=== PATIENT | male | born 1980 | race Caucasian/White ===

== ENCOUNTER 2017-03-23 09:40 | Inpatient (IN) | payer BC, OTHER ==
[~2017-03-23] VITALS: Ht 182.9 cm; Wt 77.1 kg
[2017-03-23] MEDS ORDERED: CLONIDINE HCL 0.1 MG TABLET PO PRN (19:30)
[2017-03-23] MEDS ORDERED: MAGNESIUM HYDROXIDE 30 ML LIQUID UDC PO PRN (19:30)
[2017-03-23] MEDS ORDERED: MIRALAX 17 GM POWD.PACK PO PRN (19:30)
[2017-03-23] MEDS ORDERED: LOPERAMIDE HCL 2 MG CAPSULE PO PRN ×2 (19:30)
[2017-03-23] MEDS ORDERED: MAG HYDROX/AL HYDROX/SIMETH 30 ML LIQUID UDC PO PRN (19:30)
[2017-03-23] MEDS ORDERED: DOCUSATE SODIUM 250 MG CAPSULE PO PRN (19:30)
[2017-03-23] MEDS ORDERED: DICYCLOMINE HCL 20 MG TABLET PO PRN (19:30)
[2017-03-23] MEDS ORDERED: IBUPROFEN 600 MG TABLET PO PRN (19:30)
[2017-03-23] MEDS ORDERED: LORAZEPAM 1 MG TABLET PO PRN (19:30)
[2017-03-23] MEDS ORDERED: ONDANSETRON 4 MG/2 ML VIAL IM PRN (19:30)
[2017-03-23] MEDS ORDERED: BUPRENORPHINE HCL 2 MG TAB.SUBL SL PRN (19:30)
[2017-03-23] MEDS ORDERED: ONDANSETRON ODT 4 MG TAB.RAPDIS SL PRN (19:30)
[2017-03-23] MEDS ORDERED: ACETAMINOPHEN 325 MG TABLET PO PRN (19:30)
--- NOTE | 2017-03-23 19:30 | NUR ---
Pre admission note Pt seen in intake office. Pt appears mildly intoxicated but in stable condition. V/S WNL. No s/s of distress noted at this time. Respirations even and unlabored. Policies on medication disposal explained to and understood by patient. Will continue to monitor. Will admit to unit.
[2017-03-23 19:59] LABS: BASOPHILS # (AUTO) 0.1 K/uL (0.0-8.0); EOSINOPHILS # (AUTO) 0.1 K/uL (0.0-0.7); EOSINOPHILS % (AUTO) 1.3 % (0.0-7.0); HEMATOCRIT 47.3 % (36.7-47.1); LYMPHOCYTES # (AUTO) 1.7 K/uL (20.0-40.0); LYMPHOCYTES % (AUTO) 29.6 % (20.5-51.5); MEAN CORPUSCULAR HEMOGLOBIN 31.9 uug (23.8-33.4); MEAN CORPUSCULAR HGB CONC 34 g/dL (32.5-36.3); MEAN CORPUSCULAR VOLUME 94.5 fL (73.0-96.2); MONOCYTES # (AUTO) 0.7 K/uL (2.0-10.0); MONOCYTES % (AUTO) 12.4 % (0.0-11.0); NEUTROPHILS # (AUTO) 3.2 K/uL (1.8-8.9); NEUTROPHILS % (AUTO) 55.7 % (38.5-71.5); PLATELET COUNT (AUTO) 226 K/uL (152-348); RED BLOOD CELL COUNT(AUTO) 5.01 MIL/uL (4.06-5.63); WHITE BLOOD COUNT (AUTO) 5.8 K/uL (3.6-10.2)
--- NOTE | 2017-03-23 20:00 | NUR ---
Admission note Pt is a 36 yo male, A+Ox4, presenting to [facility] for Opiate/Meth dependence. Pt has Allergies to PCN, is on Full code status, and on Regular diet. Pt is 6'0" in height and 170 LBS in weight. Pt has medical HX of Appendectomy 2 years ago. Pt has family HX as follows: Mother- DM, alcohol abuse, Father- Substance/Alcohol abuse, and Brother: Substance/Alcohol abuse. Pt has no primary care provider. Pt has been using Heroin IV for 7 years (6 months currently), has reached a level of 1gm/daily, and last dose was "$40 worth" on 03-23-17 @1000. Pt has been using Methamphetamine IV for 1 month (7 days total), has reached a level of "$10 worth" on each of the 7 days, and last dose was "$10 worth" on 03-16-17. Pt is not taking any home medications. Pt has HX of previous Detox/Rehab @ [facility] in [place] for 6 months in 09/2014. Pt continued sobriety for a total of 2 years until relapsing in 09/2016. This was the patients last time sober. Pt has been a cigarette smoker for 19 years and has reached a level of 20/daily. Pt appears mildly intoxicated upon admission but in stable condition. No s/s of distress noted at this time. V/S WNL. Respirations even and unlabored. Will continue to monitor.
[2017-03-23 20:03] LABS: *AMPHETAMINE, URINE NEGATIVE (NEGATIVE); *BARBITURATE, URINE NEGATIVE (NEGATIVE); *CANNABINOID, URINE NEGATIVE (NEGATIVE); *COCCAINE, URINE NEGATIVE (NEGATIVE); *OPIATE, URINE POSITIVE (NEGATIVE); *PHENCYCLIDINE SCREEN,URINE NEGATIVE (NEGATIVE)
[2017-03-23 20:06] LABS: ETHANOL < 3 MG/DL (0-0)
[2017-03-23 20:10] LABS: ALANINE AMINOTRANSFERASE 23 U/L (16-63); ALKALINE PHOSPHATASE 66 U/L (50-136); ASPARTATE AMINOTRANSFERASE 25 U/L (15-37); BILIRUBIN,TOTAL 0.4 mg/dL (0.2-1.0); CARBON DIOXIDE 33 mmol/L (21-32); CHLORIDE 101 mmol/L (98-107); GLUCOSE 84 mg/dL (74-106); MAGNESIUM 2.1 mg/dL (1.8-2.4); POTASSIUM 3.8 mmol/L (3.5-5.1); TOTAL PROTEIN, SERUM 7.5 g/dL (6.4-8.2); UREA NITROGEN, BLOOD 8 mg/dL (7-18)
[2017-03-23 20:11] VITALS: BP 125/74
[2017-03-23] MEDS ORDERED: LORAZEPAM 1 MG TABLET PO ONE (21:00)
[2017-03-24 00:18] VITALS: BP 128/78
[2017-03-24 04:52] VITALS: BP 124/73
--- NOTE | 2017-03-24 06:54 | NUR ---
End of shift note Pt is a 36 yo male, A+Ox4, presenting to [facility] for Opiate/Meth dependence. Pt has Allergies to PCN, is on Full code status, and on Regular diet. Pt has HX of Appendectomy, Anxiety, and Depression. Pt is on 5 day Subutex taper to start today. Pt slept for a total of 10 HRS. Last COWS: 2 @0400. No s/s of distress noted at this time. Respirations even and unlabored. Will endorse to day shift nurse.
--- NOTE | 2017-03-24 07:11 | NUR ---
Start of Shift Notes: Received patient in his room. Alert and verbally responsive. Oriented x 4. Able to make his needs known. Patient verbalizes "I feel alright." Resprations even and unlabored. No SOB noted. Skin warm and dry to touch. Abdomen soft and non-distended. BS (+) in all 4 quadrants. No complains of N/V/D or constipation noted. Bladder soft and non-distended. Voids independently. Ambulatory ad nba with steady gait. Patient is a 36 year old male admitted for opiate and methamphetamine dependence who was placed on a 5-day Subutex taper as ordered that will be starting today. Has past medical hx of appendectomy, anxiety and depression. Allergic to PCN. FULL CODE. Regular diet. On fall and seizure precautions. Encouraged oral fluid intake and encouraged group participation to learn new skills to prevent relapse. Will continue to monitor closely.
[2017-03-24 08:00] VITALS: BP 98/56
[2017-03-24] MEDS ORDERED: TUBERCULIN,PURIF.PROT.DERIV. 5 TU/0.1 ML TEST ID ONE (09:00)
[2017-03-24] MEDS: METHOCARBAMOL 750 MG TABLET PO PRN (09:14)
--- NOTE | 2017-03-24 09:14 | NUR ---
Robaxin/Bentyl given: Patient noted with complain of myalgia 5/10 and abdominal cramps. COWS 4. Medicated patient with Robaxin 750 mg PO and Bentyl as ordered. Will monitor for effectiveness.
[2017-03-24] MEDS: NEOMY/BACITRAC/POLYMI OINT 28.35 GM TUBE TOP SCH ×2 (09:15→17:03)
[2017-03-24] MEDS: BUPRENORPHINE HCL 2 MG TAB.SUBL SL SCH ×4 (09:59→20:41)
--- NOTE | 2017-03-24 09:59 | NUR ---
Subutex 4 mg SL at 0900 not administered: Patient's COWS 4. Subutex 4 mg SL not given. Patient currently does not meet parameter for Subutex administration. Patient also states "I'm not ready yet."
--- NOTE | 2017-03-24 10:14 | NUR ---
Re-assessment: Per patient, PRN Robaxin and Bentyl were mildly effective in reducing myalgia and abdominal cramps. PL 2.
[2017-03-24 12:00] VITALS: BP 99/60
--- NOTE | 2017-03-24 13:57 | NUR ---
Subutex 4 mg SL given/Ativan 2 mg PO given: BP 99/60. COWS 20, patient noted with restless, sweating cold sweats, gross tremors, appears to be in pain, stomach cramps noted with episodes of diarrhea. Patient noted severely anxious and agitated. Medicated patient with Subutex 4 mg SL PRN and Ativan 2 mg PO PRN at this time.
--- NOTE | 2017-03-24 14:05 | NUR ---
MD Communication: COWS score Dr. Diane informed of patient's sudden change in condition and COWS score. Per MD, he will enter in orders.
[2017-03-24] MEDS ORDERED: KETOROLAC TROMETHAMINE 30 MG INJ IM PRN (14:15)
[2017-03-24] MEDS ORDERED: KETOROLAC TROMETHAMINE 30 MG INJ IM ONE (14:15)
[2017-03-24] MEDS ORDERED: CLONIDINE HCL 0.1 MG TABLET PO ONE (14:15)
--- NOTE | 2017-03-24 14:23 | NUR ---
Toradol 30 mg IM/Clonidine 0.1mg PO given: Dr. Diane ordered for patient to receive OT Toradol 30 mg IM and Clonidine 0.1mg PO due to increased s/s of opiate withdrawal m/b chills, hot flashes, and myalgia. PL 9/. Medicated patient with Toradol 30 mg IM and Clonidine 0.1mg PO as ordered. Will monitor for effectiveness.
--- NOTE | 2017-03-24 14:27 | NUR ---
Re-assessment: Subutex 4mg SL COWS 16, less chills ,hot flashes noted. Less anxiety. Continues to be restless and unable to sit still.
[2017-03-24] MEDS ORDERED: LORAZEPAM 1 MG TABLET PO ONE (14:45)
--- NOTE | 2017-03-24 14:53 | NUR ---
Re-assessment: Toradol Per patient, PL is 5/10. PRN Toradol effective with reducing myalgia.
--- NOTE | 2017-03-24 14:57 | NUR ---
Re-assessment: Ativan 2 mg Per patient, he feels less anxious at this time and less agitated. PRN Ativan 2 mg PO was effective.
--- NOTE | 2017-03-24 15:23 | NUR ---
Re-assessment: Clonidine 0.1mg Per patient, he feels that Clonidine 0.1mg PO was mildly effective. Less chills, anxiety, and hot flashes noted. Patient also appears less agitated.
[2017-03-24 16:00] VITALS: BP 123/84
--- NOTE | 2017-03-24 17:02 | NUR ---
Imodium 4 mg PO given: Patient noted with x 3 episodes of loose watery stools. Medicated patient with Imodium 4 mg PO as ordered. Will monitor for effectiveness.
--- NOTE | 2017-03-24 18:02 | NUR ---
Re-assessment: Imodium Per patient, relief from Imodium noted. No further episodes of diarrhea noted.
--- NOTE | 2017-03-24 19:06 | NUR ---
End of Shift Notes: Patient initiated his 5-day Subutex taper today at 1200. No adverse reactions noted. VS monitored closely. No significant abnormalities noted. Withdrawal symptoms were closely monitored. Patient presented with chills, hot flashes, restlessness, severe anxiety, agitation, sweating, myalgia, abd cramping and diarrhea. Last COWS 12. COWS score 20 at 1357 MD aware. Medicated patient with Robaxin and Bentyl at 0914, PRN Ativan and Subutex at 1357, OT Toradol and Clonidine at 1423 and Imodium 4 mg PO at 1702. Per patient, Subutex has been effective in reducing his withdrawal symptoms. Unable to participate in group and activities due to his withdrawal symptoms. All needs met and attended. Will continue to monitor closely.
--- NOTE | 2017-03-24 19:10 | NUR ---
Start of shift note Pt is a 36 yo male, A+Ox4, presenting to [facility] for Opiate/Meth dependence. Pt has Allergies to PCN, is on Full code status, and on Regular diet. Pt is on Fall precautions. Pt has HX of Appendectomy, Anxiety, and Depression. Pt is on 5 day Subutex, tolerated well. No s/s of distress noted at this time. Respirations even and unlabored. Will continue to monitor.
[2017-03-24 20:40] VITALS: BP 130/88
[2017-03-24] MEDS: GABAPENTIN 300 MG CAPSULE PO SCH (20:40)
[2017-03-25 00:18] VITALS: BP 131/84
[2017-03-25 04:10] VITALS: BP 128/77
--- NOTE | 2017-03-25 06:51 | NUR ---
End of shift note Pt is a 36 yo male, A+Ox4, presenting to [facility] for Opiate/Meth dependence. Pt has Allergies to PCN, is on Full code status, and on Regular diet. Pt has HX of Appendectomy, Anxiety, and Depression. Pt is on 5 day Subutex taper, tolerated well. Pt slept for a total of 11 HRS. Last COWS: 6 @0400. No s/s of distress noted at this time. Respirations even and unlabored. Will endorse to day shift nurse.
--- NOTE | 2017-03-25 07:59 | NUR ---
Start of shift note; Received report from night nurse. Patient is a 36 year old male admitted on 03/23/17 for Opiate/Methamphetamine dependence. Patient reported history of anxiety, depression and appendectomy in 2015. Patient noted to be allergic to PCN, on full code status and on a regular diet. Patient slept for 11 hours. Last COWS score of 6 at 4 am. Patient is on fall and seizure precaution. Bed in lowest position, call light within reach. Will continue to monitor patient.
[2017-03-25 08:00] VITALS: BP 109/71
[2017-03-25] MEDS: BUPRENORPHINE HCL 2 MG TAB.SUBL SL SCH ×3 (09:08→20:03)
[2017-03-25] MEDS: GABAPENTIN 300 MG CAPSULE PO SCH ×3 (09:08→20:02)
[2017-03-25] MEDS: NEOMY/BACITRAC/POLYMI OINT 28.35 GM TUBE TOP SCH ×2 (09:09→17:00)
[2017-03-25 12:00] VITALS: BP 92/56
[2017-03-25 12:11] LABS: HEPATITIS B SURFACE AG Negative (Negative)
[2017-03-25 16:00] VITALS: BP 113/75
--- NOTE | 2017-03-25 18:18 | NUR ---
End of shift note; Patient is AOx4. Patient is a 36 year old male admitted on 03/23/17 for Opiate/Methamphetamine dependence. Patient reported history of anxiety, depression and appendectomy in 2014. Patient noted to be allergic to PCN, on full code status and on a regular diet. Last COWS score of 4 at 1600. Patient remained compliant with treatment plan and medication regime. Medications noted to effective in reducing withdrawal symptoms. All safety measures secured. Met all needs.
[2017-03-25 20:00] VITALS: BP 102/60
--- NOTE | 2017-03-25 20:00 | NUR ---
START OF SHIFT NOTE RECEIVED REPORT FROM DAY SHIFT NURSE. PATIENT IS A 36 YEAR OLD MALE ADMITTED FOR OPIATE DEPENDENCE. PATIENT IS ON 2ND DAY OF 5 DAY SUBUTEX TAPER, TOLERATED AND NO ADVERSE REACTION . PATIENT IS ALLERGIC TO PENICILLIN. PATIENT ELIAS MULTIPLE SCABS ON BOTH ARMS AND FACE, ON TRIPLE ANTIBIOTIC OINTMENT. PATIENT DID NOT REQUIRE ANY PRN MEDICATIONS. LAST COWS 4. RECEIVED PATIENT IN THE ROOM , RESTING. PATIENT STATES HES TIRED, ANXIOUS, SWEATING, RESTLESS LEGS, STUFFY NOSE, ABDOMINAL CRAMPING AND POOR APPETITE, C/O PAIN, NO N/V. ON FALL PRECAUTION. SAFETY MEASURES IN PLACE. CALL LIGHT IN REACH. WILL CONTINUE TO MONITOR
[2017-03-25] MEDS: METHOCARBAMOL 750 MG TABLET PO PRN (20:02)
--- NOTE | 2017-03-25 20:02 | NUR ---
PRN ROBAXIN ADMINISTRATION PATIENT C/O GENERALIZED BODY ACHES 6/10 AND RESTLESS LEGS, PRN ROBAXIN GIVEN. WILL MONITOR FOR EFFECTIVENESS
[2017-03-25] MEDS: CLONIDINE HCL 0.1 MG TABLET PO SCH (20:03)
--- NOTE | 2017-03-25 21:02 | NUR ---
PRN ROBAXIN RE-ASSESSMENT PATIENT'S PAIN LEVEL 2/10 AT THIS TIME, TOLERABLE. ROBAXIN HELPFUL AND EFFECTIVE PER PATIENT.
--- NOTE | 2017-03-26 | NUR ---
COWS DEFERRED PATIENT SLEEPING. COWS DEFERRED. VS REFUSED TO BE CHECKED. RESPIRATION EVEN AND UNLABORED. SAFETY MEASURES IN PLACE. CALL LIGHT IN REACH. WILL CONTINUE TO MONITOR.
--- NOTE | 2017-03-26 06:58 | NUR ---
END OF SHIFT NOTE PATIENT CONTINUE ON SUBUTEX TAPER FOR OPIATE DEPENDENCE, TOLERATED WELL AND NO ADVERSE REACTION.CONTINUE ON TRIPLE ANTIBIOTIC OINTMENT FOR MULTIPLE SCABS ON BOTH ARMS AND FACE. PATIENT WAS GIVEN PRN ROBAXIN FOR GENERALIZED BODY ACHES. PATIENT IN THE ROOM MOST OF THE SHIFT. ON FALL PRECAUTION. SAFETY MEASURES IN PLACE. CALL LIGHT IN REACH. WILL CONTINUE TO MONITOR. SLEPT 10 HOURS. FLUID INTAKE 1,888 ML. VOIDED X 5. NO BM. LAST COWS 6.
--- NOTE | 2017-03-26 07:56 | NUR ---
Start of shift note; Received report from night nurse. Patient is a 36 year old male admitted on 03/23/17 for Opiate/Methamphetamine dependence. Patient reported history of anxiety, depression and appendectomy in 2015. Patient noted to be allergic to PCN, on full code status and on a regular diet. Patient slept for 10 hours. Last COWS score of 6 at 2000. Patient is on fall and seizure precaution. Bed in lowest position, call light within reach. Will continue to monitor patient
[2017-03-26 08:00] VITALS: BP 118/71
[2017-03-26] MEDS: NEOMY/BACITRAC/POLYMI OINT 28.35 GM TUBE TOP SCH ×2 (08:40→17:00)
[2017-03-26] MEDS: GABAPENTIN 300 MG CAPSULE PO SCH ×3 (08:40→20:50)
[2017-03-26] MEDS: CLONIDINE HCL 0.1 MG TABLET PO SCH ×2 (08:40→20:51)
[2017-03-26] MEDS ORDERED: BUPRENORPHINE HCL 2 MG TAB.SUBL SL SCH (09:00)
[2017-03-26 12:00] VITALS: BP 112/75
--- NOTE | 2017-03-26 14:07 | NUR ---
THerapist prompted client to attend group today. CLient agreed to attend.
[2017-03-26] MEDS: BACLOFEN 10 MG TABLET PO SCH ×2 (15:25→20:51)
[2017-03-26] MEDS: BUPRENORPHINE HCL 2 MG TAB.SUBL SL SCH ×2 (15:26→20:52)
[2017-03-26 16:00] VITALS: BP 122/66
--- NOTE | 2017-03-26 18:23 | NUR ---
End of shift note; Patient is AOx4. Patient is a 36 year old male admitted on 03/23/17 for Opiate/Methamphetamine dependence. Patient reported history of anxiety, depression and appendectomy in 2014. Patient noted to be allergic to PCN, on full code status and on a regular diet. Last COWS score of 3 at 1600. Patient remained compliant with treatment plan and medication regime. Medications noted to effective in reducing withdrawal symptoms. All safety measures secured. Met all needs.
[2017-03-26 20:00] VITALS: BP 115/74
--- NOTE | 2017-03-26 20:00 | NUR ---
START OF SHIFT NOTE RECEIVED REPORT FROM DAY SHIFT NURSE. PATIENT IS A 36 YEAR OLD MALE ADMITTED FOR OPIATE DEPENDENCE. PATIENT ON 3RD DAY OF HIS 5 DAY SUBUTEX TAPER, TOLERATED WELL. PATIENT ALLERGIC TO PENICILLIN. CONTINUE ON ANTIBIOTIC OINTMENT FOR MULTIPLE SCABS ON BOTH ARMS AND FACE. PATIENT DID NOT REQUIRE ANY PRN MEDICATION , LAST COWS 3. RECEIVED PATIENT UP AND ABOUT, ALERT AND ORIENTED X 4. RESPIRATION EVEN AND UNLABORED. PATIENT STATES HE ATTENDED GROUPS, NO N/V, DENIES ANY PAIN, ANXIOUS , SWEATING , APPETITE IS BETTER TODAY. ON FALL PRECAUTION. SAFETY MEASURES IN PLACE. CALL LIGHT IN REACH. WILL CONTINUE TO MONITOR
[2017-03-26] MEDS: HYDROXYZINE PAMOATE 25 MG CAPSULE PO PRN (22:05)
[2017-03-26] MEDS: diphenhydrAMINE 50 MG CAPSULE PO PRN (22:05)
--- NOTE | 2017-03-26 22:05 | NUR ---
PRN BENADRYL AND VISTARIL ADMINISTRATION PATIENT REPORTS UNABLE TO SLEEP DUE TO ANXIETY, REQUESTS FOR SLEEP AID. WILL MONITOR FOR EFFECTIVENESS
--- NOTE | 2017-03-26 23:05 | NUR ---
SINDHU CHOWDHURY AND ELSATARIL RE-ASSESSMENT PATIENT IN BED , ASLEEP AT THIS TIME. WILL CONTINUE TO MONITOR
--- NOTE | 2017-03-27 | NUR ---
COWS DEFERRED PATIENT SLEEPING. COWS DEFERRED. VS REFUSED. RESPIRATION EVEN AND UNLABORED. SAFETY MEASURES IN PLACE. CALL LIGHT IN REACH. WILL CONTINUE TO MONITOR
[2017-03-27 04:00] VITALS: BP 90/60
--- NOTE | 2017-03-27 04:00 | NUR ---
COWS DEFERRED PATIENT SLEEPING. COWS DEFERRED. VS REFUSED. RESPIRATION EVEN AND UNLABORED. SAFETY MEASURES IN PLACE. CALL LIGHT IN REACH. WILL CONTINUE TO MONITOR
--- NOTE | 2017-03-27 07:13 | NUR ---
END OF SHIFT NOTE PATIENT CONTINUE ON SUBUTEX TAPER FOR OPIATE DEPENDENCE, TOLERATED WELL AND NO ADVERSE REACTION. CONTINUE ON ANTIBIOTIC OINTMENT FOR MULTIPLE SCABS ON BOTH ARMS AND FACE. PATIENT WAS GIVEN PRN BENADRYL AND VISTARIL. PATIENT COMPLIANT WITH MEDICATION AND TREATMENT PLAN. ON FALL PRECAUTION. SAFETY MEASURES IN PLACE. CALL LIGHT IN REACH. WILL CONTINUE TO MONITOR. SLEPT 6 HOURS. FLUID INTAKE 1,200 ML. VOIDED X 3. NO BM. LAST COWS 4.
--- NOTE | 2017-03-27 07:45 | NUR ---
Start of shift note; Received report from night nurse. Patient is a 36 year old male admitted on 03/23/17 for Opiate/Methamphetamine dependence. Patient reported history of anxiety, depression and appendectomy in 2015. Patient noted to be allergic to PCN, on full code status and on a regular diet. Patient slept for 6 hours. Last COWS score of 6 at 2000. Patient is on fall and seizure precaution. Bed in lowest position, call light within reach. Will continue to monitor patient
[2017-03-27 08:00] VITALS: BP 92/68
[2017-03-27] MEDS: BACLOFEN 10 MG TABLET PO SCH ×3 (08:05→20:37)
[2017-03-27] MEDS: CLONIDINE HCL 0.1 MG TABLET PO SCH ×2 (08:05→20:37)
[2017-03-27] MEDS: GABAPENTIN 300 MG CAPSULE PO SCH ×3 (08:05→20:36)
[2017-03-27] MEDS: BUPRENORPHINE HCL 2 MG TAB.SUBL SL SCH ×3 (08:06→20:37)
[2017-03-27] MEDS: NEOMY/BACITRAC/POLYMI OINT 28.35 GM TUBE TOP SCH ×2 (08:06→17:00)
[2017-03-27 12:00] VITALS: BP 110/62
[2017-03-27 16:00] VITALS: BP 110/62
[2017-03-27] MEDS: HYDROXYZINE PAMOATE 25 MG CAPSULE PO PRN (17:11)
--- NOTE | 2017-03-27 17:11 | NUR ---
PRN medication; Patient appears anxious and agitated. PRN Vistaril 25mg PO given to patient. Will continue to monitor patient for effectiveness of medication.
--- NOTE | 2017-03-27 18:11 | NUR ---
Re-assessment; Patient appears calm and comfortable. PRN medication noted to be effective.
[2017-03-27 20:00] VITALS: BP 109/75
--- NOTE | 2017-03-27 20:00 | NUR ---
START OF SHIFT NOTE RECEIVED REPORT FROM DAY SHIFT NURSE. PATIENT CONTINUE ON 5 DAY SUBUTEX TAPER , TOLERATED WELL AND NO ADVERSE REACTION. CONTINUE ON TRIPLE ANTIBIOTIC OINTMENT FOR MULTIPLE SCABS ON BOTH ARMS AND FACE, HEALING. PATIENT WAS GIVEN PRN VISTARIL . LAST COWS 3. PATIENT COMPLIANT WITH MEDICATIONS AND TREATMENT PLAN. RECEIVED PATIENT ALERT AND ORIENTED X 4. RESPIRATION EVEN AND UNLABORED. PATIENT REPORTS ANXIETY, ,RUNNY NOSE, RESTLESS LEGS, NO SWEATING, NO N/V, DENIES ANY PAIN. APPETITE IS BETTER. ON FALL/PRECAUTION. SAFETY MEASURES IN PLACE. CALL LIGHT IN REACH. WILL CONTINUE TO MONITOR.
--- NOTE | 2017-03-28 | NUR ---
COWS DEFERRED PATIENT SLEEPING. COWS DEFERRED. REFUSED VS. RESPIRATION EVEN AND UNLABORED. SAFETY MEASURES IN PLACE. CALL LIGHT IN REACH. WILL CONTINUE TO MONITOR.
--- NOTE | 2017-03-28 04:00 | NUR ---
COWS DEFERRED PATIENT SLEEPING. COWS DEFERRED. REFUSED VS. RESPIRATION EVEN AND UNLABORED. SAFETY MEASURES IN PLACE. CALL LIGHT IN REACH. WILL CONTINUE TO MONITOR.
--- NOTE | 2017-03-28 07:08 | NUR ---
END OF SHIFT NOTE PATIENT CONTINUE ON 5 DAY SUBUTEX TAPER , TOLERATED WELL AND NO ADVERSE REACTION. CONTINUE ON TRIPLE ANTIBIOTIC OINTMENT FOR MULTIPLE SCABS ON BOTH ARMS AND FACE, HEALING. PATIENT WAS GIVEN PRN VISTARIL . LAST COWS 3. PATIENT COMPLIANT WITH MEDICATIONS AND TREATMENT PLAN. ON FALL/PRECAUTION. SAFETY MEASURES IN PLACE. CALL LIGHT IN REACH. WILL CONTINUE TO MONITOR. SLEPT 7 HOURS. FLUID INTAKE 1,100 ML. VOIDED X 3 . NO BM. LAST COWS 2.
--- NOTE | 2017-03-28 07:27 | NUR ---
Start of shift note; Received report from night nurse. Patient is a 36 year old male admitted on 03/23/17 for Opiate/Methamphetamine dependence. Patient reported history of anxiety, depression and appendectomy in 2015. Patient noted to be allergic to PCN, on full code status and on a regular diet. Patient slept for 7 hours. Last COWS score of 2 at 2000. Patient is on fall and seizure precaution. Bed in lowest position, call light within reach. Will continue to monitor patient
[2017-03-28 08:00] VITALS: BP 127/78
[2017-03-28] MEDS: GABAPENTIN 300 MG CAPSULE PO SCH ×3 (08:41→20:45)
[2017-03-28] MEDS: CLONIDINE HCL 0.1 MG TABLET PO SCH ×2 (08:41→20:45)
[2017-03-28] MEDS: BACLOFEN 10 MG TABLET PO SCH ×3 (08:41→20:44)
[2017-03-28] MEDS: NEOMY/BACITRAC/POLYMI OINT 28.35 GM TUBE TOP SCH ×2 (08:41→17:00)
[2017-03-28] MEDS ORDERED: BUPRENORPHINE HCL 2 MG TAB.SUBL SL SCH (09:00)
[2017-03-28 12:00] VITALS: BP 126/74
[2017-03-28] MEDS ORDERED: DIPH50CA37 PO (15:34)
[2017-03-28] MEDS ORDERED: GABA-534 PO ×2 (15:34)
[2017-03-28] MEDS ORDERED: DICY20TA28 PO (15:34)
[2017-03-28] MEDS ORDERED: METH-406 PO (15:34)
[2017-03-28] MEDS ORDERED: HYDR-3895 PO (15:34)
[2017-03-28] MEDS ORDERED: IBUP-1955 PO (15:34)
[2017-03-28] MEDS ORDERED: CLON0.1T14 PO (15:34)
[2017-03-28 16:00] VITALS: BP 109/65
--- NOTE | 2017-03-28 18:18 | NUR ---
End of shift note; Patient is AOx4. Patient is a 36 year old male admitted on 03/23/17 for Opiate/Methamphetamine dependence. Patient reported history of anxiety, depression and appendectomy in 2014. Patient noted to be allergic to PCN, on full code status and on a regular . Patient remained compliant with treatment plan and medication regime. Medications noted to effective in reducing withdrawal symptoms. Patient is medically cleared for discharge tomorrow. All safety measures secured. Met all needs.
--- NOTE | 2017-03-28 19:15 | NUR ---
START OF SHIFT Received 36 year old male patient admitted on 03/23/17 for Heroin and Methamphetamine dependency. Pt is full code with allergy to PCN. He reports a PMHx of appendectomy 2015, anxiety and depression. He reports using Heroin IV 1 gram daily for 7 years but 6 months at this rate. Last dose was "$40 worth" on 03/23/17. And Methamphetamine IV "$10 worth/day" for 1 month. Last dose was "$10 worth" on 03/16/17. Pt completed a 5 day Subutex taper and tolerated well. Per endorsement, pt is scheduled to be DC tomorrow to [facility]. He did not receive or request PRN medications. Pt is alert and oriented x4, breathing is even and unlabored. Safety measures in place. Will continue to monitor.
[2017-03-28 20:00] VITALS: BP 130/80
[2017-03-28] MEDS: diphenhydrAMINE 50 MG CAPSULE PO PRN (20:49)
--- NOTE | 2017-03-28 20:49 | NUR ---
PRN BENADRYL Pt complains of inability to sleep. PRN Benadryl administered as ordered. Safety measures in place. Will monitor effectiveness.
--- NOTE | 2017-03-28 21:49 | NUR ---
PRN REASSESSMENT PRN medication effective. Pt lying in bed with eyes closed noted to be asleep. Breathing is even and unlabored. Safety measures in place. Will monitor.
--- NOTE | 2017-03-29 | NUR ---
VITALS REFUSED/ COWS DEFERRED 0000 vitals refused. COWS deferred d/t pt lying in bed with eyes closed noted to be asleep. Breathing is even and unlabored. Safety measures in place. Will monitor.
--- NOTE | 2017-03-29 07:16 | NUR ---
END OF SHIFT Pt is a 36 year old male patient admitted on 03/23/17 for Heroin and Methamphetamine dependency. Pt is full code with allergy to PCN. He reports a PMHx of appendectomy 2014, anxiety and depression. He is scheduled to be DC today to [facility]. He received PRN Benadryl at 2048. He slept a total of 7hrs, Intake:710mL, Void:x3, BM:0 COWS:1. Pt remains alert and oriented x4, breathing is even and unlabored. Safety measures in place. Endorsed to AM shift.
--- NOTE | 2017-03-29 07:30 | NUR ---
start of shift note: start of shift note, received pt from bookbinder chief nurse, pt is in stable condition no s/s of pain or discomfort. pt is admitted to [facility] for opiate/meth withdrawal/dependence. pt is set to discharge today. will assist pt in discharging and will continue to monitor pt for any changes. pt's last cows 1
[2017-03-29] MEDS: NEOMY/BACITRAC/POLYMI OINT 28.35 GM TUBE TOP SCH (09:00)
[2017-03-29 09:07] VITALS: BP 116/86
[2017-03-29] MEDS: CLONIDINE HCL 0.1 MG TABLET PO SCH (09:07)
[2017-03-29] MEDS: BACLOFEN 10 MG TABLET PO SCH (09:07)
[2017-03-29] MEDS: GABAPENTIN 300 MG CAPSULE PO SCH (09:07)
[2017-03-29] MEDS: HYDROXYZINE PAMOATE 25 MG CAPSULE PO PRN (09:12)
--- NOTE | 2017-03-29 09:30 | NUR ---
discharge note: pt left the unit in stable condition, pt teaching administered and pt verbalized understanding. all personal belongings were returned. pt will be transferred to [facility] via private car
== END 2017-03-29 09:30 | disposition other institution (70) | DRG 895 ==
LOC: SRC 18:57
PROVIDERS: ADMIT Internal Medicine; ATTEND Internal Medicine
PROC: HZ2ZZZZ Detoxification Services for Substance Abuse Treatment (ICD-10-PCS; principal; 2017-03-23)
PROC: HZ31ZZZ Individual Counseling for Substance Abuse Treatment, Behavioral (ICD-10-PCS; 2017-03-26)
PROC: HZ41ZZZ Group Counseling for Substance Abuse Treatment, Behavioral (ICD-10-PCS; 2017-03-26)
DX: F11.23 Opioid dependence with withdrawal (principal); E87.3 Alkalosis; E86.0 Dehydration; F15.10 Other stimulant abuse, uncomplicated; Z81.1 Family history of alcohol abuse and dependence; Z81.8 Family history of other mental and behavioral disorders; F17.210 Nicotine dependence, cigarettes, uncomplicated; F41.9 Anxiety disorder, unspecified; Z82.49 Family history of ischemic heart disease and other diseases of the circulatory system; Z91.89 Other specified personal risk factors, not elsewhere classified; S00.80XS Unspecified superficial injury of other part of head, sequela; L08.9 Local infection of the skin and subcutaneous tissue, unspecified; Y33.XXXS Other specified events, undetermined intent, sequela; Z20.5 Contact with and (suspected) exposure to viral hepatitis; F32.9 Major depressive disorder, single episode, unspecified
CPT/HCPCS: 36415; 70030-TC; 80307; 80361; 83735; 85025; 86580; 86592; 86705; 86803; 87340; 87806; A4663; G0480; J1885; Q0163